=== PATIENT | female | born 1985 | race African-American/Black ===

== ENCOUNTER 2016-09-05 10:20 | Emergency (ER) | payer OTHER ==
[~2016-09-05] VITALS: Ht 149.9 cm; Wt 58.5 kg
[~2016-09-05 10:20] MED LIST: BEN25 PO; EPIN0.3P4 INJ; FAMO-18 PO; PRED20TA PO
[2016-09-05 10:22] VITALS: Ht 149.9 cm; Wt 58.5 kg
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
[2016-09-05] MEDS ORDERED: SULF15DR19 BOTH EYES (10:50)
[2016-09-05] MEDS ORDERED: ERYTOPOI LEFT EYE (10:52)
[2016-09-05 12:01] VITALS: BP 124/64; PULSE 72; RESP 19; TEMP 98.4
== END 2016-09-05 12:02 | disposition home or self-care (01) ==
LOC: FTE 10:20
DX: H57.12 Ocular pain, left eye (principal); H10.9 Unspecified conjunctivitis
CPT/HCPCS: 99283

== ENCOUNTER 2017-03-22 12:35 | Emergency (ER) | END 2017-03-22 14:19 | disposition home or self-care (01) ==

== ENCOUNTER 2017-06-24 20:47 | Emergency (ER) | END 2017-06-25 00:33 | disposition home or self-care (01) ==

== ENCOUNTER 2018-05-27 11:27 | Emergency (ER) | payer OTHER ==
[~2018-05-27] VITALS: Ht 149.9 cm; Wt 56.4 kg
[~2018-05-27 11:27] MED LIST changes: +ERYTOPOI LEFT EYE; -FAMO-18 PO; +FAMO-96 PO; +IBUP-1542 PO; +ORPH100T PO
[2018-05-27 11:43] VITALS: BP 119/59; PULSE 105; RESP 16; Ht 149.9 cm; Wt 56.4 kg
[2018-05-27] MEDS ORDERED: ONDANSETRON (ODT) 4 MG TAB ODT STA (14:01)
[2018-05-27] MEDS ORDERED: AZIT250T PO (14:11)
[2018-05-27] MEDS ORDERED: IBUP-1542 PO (14:11)
[2018-05-27] MEDS ORDERED: D-ME473S2 PO (14:11)
--- NOTE | 2018-05-27 14:13 | ERD ---
ER Documentation Chief Complaint Chief Complaint multiple complaints, cough, vomiting,fever x 1 week HPI 32-year-old female presents with cough for last week. She has a few episodes of posttussive vomiting, nonbilious nonbloody. She has had fever since yesterday. She denies abdominal pain, diarrhea, urinary complaints. ROS All systems reviewed and are negative except as per history of present illness. Medications Home Meds Active Scripts Ibuprofen* (Motrin*) 600 Mg Tab, 600 MG PO Q6, #20 TAB Prov:MIGUELINA FISCHER MD 05/27/18 Dextromethorphan Hb-Promethazine Hcl* (Promethazine DM* Syrup) 473 Ml Syrup, 5 ML PO Q6 PRN for COUGH for 5 Days, ML Prov:MIGUELINA FISCHER MD 05/27/18 Azithromycin* (Zithromax*) 250 Mg Tablet, 250 MG PO .ZPACK DIRECTED, #6 TAB TAKE 500 MG (2 TABS) THE FIRST DAY THEN 250 MG (1 TAB) DAYS 2-5 Prov:MIGUELINA FISCHER MD 05/27/18 Orphenadrine Citrate (Norflex) 100 Mg Tablet.sa, 100 MG PO BID for 5 Days, TAB.SA Prov:EFE ARMENTA 03/22/17 Ibuprofen* (Motrin*) 600 Mg Tab, 600 MG PO Q6, #30 TAB Prov:EFE ARMENTA 03/22/17 Erythromycin* (Erythromycin* Ophthalmic) 1 Applic Oint, 1 APPLIC LEFT EYE QID for 7 Days, #1 TUB Prov:ZORA MADSEN 09/05/16 Epinephrine (Epipen 2-Johnathan) 0.3 Mg/0.3 Ml Pen.injctr, 1 EA INJ ONCE PRN for ALLERGIC REACTION, #1 EA Prov:NICHOLAS TRAORE PA-C 02/09/16 Famotidine* (Pepcid*) 20 Mg Tablet, 20 MG PO BID for ALLERGIC REACTION for 4 Days, #20 TAB Prov:NICHOLAS TRAORE PA-C 02/09/16 Diphenhydramine Hcl* (Benadryl*) 25 Mg Cap, 25 MG PO Q6, #30 CAP Prov:NICHOLAS TRAORE PA-C 16 Prednisone* (Prednisone*) 20 Mg Tab, 40 MG PO DAILY for 4 Days, TAB Prov:LEÓNNICHOLAS PA-C 02/09/16 Reported Medications [none] No Conflict Check 03/28/12 Allergies Allergies: Coded Allergies: shrimp (Verified Allergy, Severe, THROAT SWELLS AND ITCHYNESS, 09/05/16) Uncoded Allergies: SEAFOOD (Allergy, Unknown, 02/09/16) PMhx/Soc Medical and Surgical Hx: pt denies Medical Hx, pt denies Surgical Hx History of Surgery: No Anesthesia Reaction: No Hx Neurological Disorder: No Hx Respiratory Disorders: No Hx Cardiac Disorders: No Hx Psychiatric Problems: No Hx Miscellaneous Medical Probl: No Hx Alcohol Use: No Hx Substance Use: No Hx Tobacco Use: No Smoking Status: Never smoker FmHx Family History: No diabetes, No coronary disease, No other Physical Exam Vitals Vital Signs Date Temp Pulse Resp B/P (MAP) Pulse Ox O2 O2 Flow FiO2 Time Delivery Rate 05/27/18 101.3 105 16 119/59 99 11:43 (79) Physical Exam Const: No acute distress. Well-appearing speaking complete sentences. Head: Atraumatic Eyes: Normal Conjunctiva ENT: Normal External Ears, Nose and Mouth. TMs and oropharynx normal. Neck: Full range of motion. No meningismus. Resp: Clear to auscultation bilaterally .coarse cough without rales, wheezing or retractions. Cardio: Regular rate and rhythm, no murmurs Abd: Soft, non tender, non distended. Normal bowel sounds Skin: No petechiae or rashes Back: No midline or flank tenderness Ext: No cyanosis, or edema Neur: Awake and alert Psych: Normal Mood and Affect Results 24 hrs Current Medications Medications Dose Sig/Howie Start Time Status Last (Trade) Ordered Route PRN Stop Time Admin Dose Reason Admin 650 mg ONCE ONCE 05/27/18 05/27/18 Acetaminophen PO 14:30 14:09 (Tylenol 05/27/18 14:31 Tab) Ondansetron 8 mg ONCE STAT 05/27/18 DC 05/27/18 HCl (Zofran ODT 14:01 14:10 Odt) 05/27/18 14:02 Procedures/MDM Patient presents with worsening productive cough your symptoms over the last week with no fever. She has no evidence of hypoxemia, rest or stress of signs of pneumonia on clinical exam. Will treat empirically given the duration of worsening symptoms with Zithromax, promethazine, ibuprofen. The patient was stable with no new complaints during the ER course. Clinically, there is no current evidence to suggest meningitis, sepsis, acute abdomen, pneumonia, stroke, acute coronary syndrome, pulmonary embolism, aortic dissection or any other emergent condition appearing to require further evaluation or hospitalization. Patient counseled regarding my diagnostic impression and care plan. Prior to discharge all questions answered. Pt agrees with treatment plan and understands strict return precautions. Pt is instructed to follow up with primary care provider within 24-48 hours. Precautionary instructions provided including instructions to return to the ER if not improving or for any worsening or changing symptoms or concerns. Departure Diagnosis: Primary Impression: URI, acute Condition: Stable Patient Instructions: Bronchitis, Antiobiotic Treatment (Adult), Fever Control (Adult) Additional Instructions: We will treat for bronchitis given the duration of symptoms. Recheck for new or worsening symptoms with primary care doctor. MIGUELINA FISCHER MD May 27, 2018 14:13
[2018-05-27] MEDS ORDERED: ACETAMINOPHEN 325 MG TAB PO ONE (14:30)
== END 2018-05-27 14:25 | disposition home or self-care (01) ==
LOC: FTE 11:27
DX: J06.9 Acute upper respiratory infection, unspecified (principal)
CPT/HCPCS: Z7502; Z7610; 99283

== ENCOUNTER 2018-09-07 19:20 | Emergency (ER) | payer SELFPAY ==
[~2018-09-07] VITALS: Ht 149.9 cm; Wt 56.3 kg
[~2018-09-07 19:20] MED LIST changes: +AZIT250T PO; +D-ME473S2 PO
[2018-09-07 19:23] VITALS: Ht 149.9 cm; Wt 56.3 kg
[2018-09-07] MEDS ORDERED: ACETAMINOPHEN 325 MG TAB PO ONE (20:00)
[2018-09-07] MEDS ORDERED: FLUORESCEIN STRIP RIGHT EYE ONE (20:00)
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
[2018-09-07] MEDS ORDERED: ACET500C5 PO (22:24)
[2018-09-07 22:33] VITALS: BP 124/66; PULSE 90; RESP 16
== END 2018-09-07 22:33 | disposition home or self-care (01) ==
LOC: FTE 19:20
DX: S05.91XA Unspecified injury of right eye and orbit, initial encounter (principal); H43.11 Vitreous hemorrhage, right eye; Y04.2XXA Assault by strike against or bumped into by another person, initial encounter
CPT/HCPCS: 70480; 76536; Z7502; Z7610

== ENCOUNTER 2018-10-26 17:58 | Emergency (ER) | payer SELFPAY ==
[~2018-10-26] VITALS: Ht 152.4 cm; Wt 60.0 kg
[~2018-10-26 17:58] MED LIST changes: +ACET500C5 PO; +FER325 PO; +MAGN296S40 PO
[2018-10-26 18:08] VITALS: BP 136/69; PULSE 94; RESP 18; Ht 152.4 cm; Wt 60.0 kg
== END 2018-10-26 21:20 | disposition home or self-care (01) ==
LOC: FTE 17:58
DX: O26.891 Other specified pregnancy related conditions, first trimester (principal); R10.2 Pelvic and perineal pain; O99.011 Anemia complicating pregnancy, first trimester; Z3A.08 8 weeks gestation of pregnancy
CPT/HCPCS: 36415; 76801; 80053; 81001; 84702; 85025; 86900; 86901

== ENCOUNTER 2018-11-23 12:08 | Emergency (ER) | payer MEDICAID ==
[~2018-11-23] VITALS: Ht 149.9 cm; Wt 61.6 kg
[2018-11-23 12:15] VITALS: BP 129/60; PULSE 88; RESP 16; Ht 149.9 cm; Wt 61.6 kg
== END 2018-11-23 14:46 | disposition home or self-care (01) ==
LOC: FTE 12:08
DX: N93.9 Abnormal uterine and vaginal bleeding, unspecified (principal); R10.31 Right lower quadrant pain; Z33.1 Pregnant state, incidental
CPT/HCPCS: 36415; 76801; 81001; 84702; 85025; 87086; Z7502

== ENCOUNTER 2018-12-21 11:56 | Emergency (ER) | payer MEDICAID ==
[~2018-12-21] VITALS: Ht 152.4 cm; Wt 63.7 kg
[2018-12-21 12:16] VITALS: Ht 152.4 cm; Wt 63.7 kg
[2018-12-21 15:02] VITALS: BP 122/62; PULSE 66; RESP 18
== END 2018-12-21 15:00 | disposition home or self-care (01) ==
LOC: FTE 11:56
DX: O36.8120 Decreased fetal movements, second trimester, not applicable or unspecified (principal); Z3A.16 16 weeks gestation of pregnancy
CPT/HCPCS: 76805; 81001; Z7502